=== PATIENT | female | born 1970 | race Caucasian/White ===

== ENCOUNTER 2016-04-10 21:41 | Emergency (ER) | payer BC, OTHER ==
[2016-04-10 21:47] VITALS: RESP 18; TEMP 98
[2016-04-10] MEDS ORDERED: ONDANSETRON 4 MG ODT BU ONE (22:05)
[2016-04-10] MEDS ORDERED: ONDANSETRON 4 MG ODT ONE (22:07)
[2016-04-10 22:20] VITALS: BP 136/62; PULSE 63; O2SAT 100
== END 2016-04-10 22:16 | disposition home or self-care (01) | DRG 392 ==
LOC: ED 21:41
DX: K29.00 Acute gastritis without bleeding (principal)
CPT/HCPCS: 99282

== ENCOUNTER 2018-05-06 07:35 | Emergency (ER) | payer OTHER ==
[2018-05-06 07:51] VITALS: RESP 20; O2SAT 97
[2018-05-06 08:51] VITALS: BP 130/84; PULSE 71; TEMP 97.4
== END 2018-05-06 08:40 | disposition home or self-care (01) | DRG 153 ==
LOC: ED 07:35
DX: J01.00 Acute maxillary sinusitis, unspecified (principal); R05 Cough; R50.9 Fever, unspecified
CPT/HCPCS: 99282

== ENCOUNTER 2018-08-05 07:28 | Day surgery (SDC) | payer OTHER ==
[~2018-08-05 07:28] MED LIST: LIDOCAINE HCL 1% MPF 30 SOL ONE
[2018-08-05] MEDS ORDERED: BUPIVACAINE/EPI 0.5% 10 ML SOL INFIL ONE (07:49)
[2018-08-05] MEDS ORDERED: ONDANSETRON HCL 4 MG/2 ML SOL ONE ×2 (09:23→10:46)
[2018-08-05] MEDS: FENTANYL 250 MCG/ 5ML SOL ONE ×2 (09:31→10:09)
[2018-08-05] MEDS ORDERED: METOCLOPRAMIDE HYDROCHLORIDE 5 MG/ML SOL ONE (09:55)
[2018-08-05] MEDS ORDERED: NALOXONE HYDROCHLORIDE 0.4 MG/ML SOL ONE (10:10)
[2018-08-05 11:01] VITALS: TEMP 97.4
[2018-08-05 11:08] VITALS: RESP 14
[2018-08-05 11:27] VITALS: BP 119/80; PULSE 59; O2SAT 94
== END 2018-08-05 12:10 | disposition home or self-care (01) | DRG 607 ==
LOC: SURG 07:28
PROVIDERS: ATTEND Surgery
DX: L73.2 Hidradenitis suppurativa (principal)
CPT/HCPCS: 99001; J2310; J2405; J2765; J3010; A6402; J2001

== ENCOUNTER 2018-09-01 16:40 | Emergency (ER) | payer OTHER ==
[2018-09-01] MEDS ORDERED: DIPHENHYDRAMINE 50 MG/ML SOL IM ONE (16:46)
[2018-09-01] MEDS ORDERED: SOLUMEDROL 125 MG/2 ML 125 MG/2 ML PDS IM ONE (16:47)
[2018-09-01 16:51] VITALS: RESP 20; TEMP 97.8
[2018-09-01] MEDS ORDERED: DIPHENHYDRAMINE 50 MG/ML SOL ONE (16:53)
[2018-09-01] MEDS ORDERED: SOLUMEDROL 125 MG/2 ML 125 MG/2 ML PDS ONE (16:53)
[2018-09-01 19:47] VITALS: BP 150/72; PULSE 64; O2SAT 99
== END 2018-09-01 18:15 | disposition home or self-care (01) | DRG 607 ==
LOC: ED 16:40
DX: L50.9 Urticaria, unspecified (principal); T81.89XD Other complications of procedures, not elsewhere classified, subsequent encounter; L98.492 Non-pressure chronic ulcer of skin of other sites with fat layer exposed; T36.0X5A Adverse effect of penicillins, initial encounter
CPT/HCPCS: 87070; 87077; 87186; 96372; 99283; J1200; J2930